=== PATIENT | male | born 2000 | race Caucasian/White ===

== ENCOUNTER 2023-07-13 10:38 | Emergency (ER) | payer OTHER ==
[2023-07-13] MEDS ORDERED: Lidocaine 1% (PF) 30 ML VIAL ONE (12:26)
[2023-07-13] MEDS ORDERED: Silver Nitrate Application 1 EACH ONE (12:52)
[2023-07-13] MEDS ORDERED: Bacitracin 1 PK ONE (13:06)
== END 2023-07-13 13:27 | disposition home or self-care (01) ==
LOC: CSHERS 10:38
DX: L60.0 Ingrowing nail (principal); J45.909 Unspecified asthma, uncomplicated; F17.290 Nicotine dependence, other tobacco product, uncomplicated
CPT/HCPCS: 11750; J2001